=== PATIENT | female | born 1945 | race Caucasian/White ===

== ENCOUNTER 2020-05-31 08:44 | Emergency (ER) | payer MEDICARE ==
[~2020-05-31] VITALS: Ht 154.9 cm; Wt 86.0 kg
[2020-05-31] MEDS ORDERED: ERYTHROMYCIN 0.5% OPHTH OINTMENT 1GM TUBE. OD ONE (09:15)
[2020-05-31] MEDS ORDERED: TETRACAINE 0.5% OPHTH SOLUTION 4ML BOTTLE. OD ONE (09:15)
[2020-05-31] MEDS ORDERED: FLUORESCEIN 1MG EYE STRIP. OD ONE (09:15)
--- NOTE | 2020-05-31 09:26 | PHYS DOC ---
Past History Past Medical History: Hypertension, Liver Disease Additional Past Medical Histor: Swelling to legs Past Surgical History: Hysterectomy Smoking: Non-smoker Alcohol Use: Heavy Additional Alcohol Information: 2+ cocktails daily. Drug Use: None General Adult EDM: Chief Complaint: LOWER EXTREMITY SWELLING HPI: HPI: Patient is a 74-year-old female with a history of liver disease and hypertension who presents to ED with a chief complaint of lower leg swelling. Patient states for the past month she is been dealing with bilateral lower extremity swelling and is currently being treated with hydrochlorothiazide by her PCP but reports that the swelling is not better and that she has come continual pain in her legs when she walks. She reports being relatively sedentary at home. She denies fever, chest pain, or shortness of breath. She also reports past 3 days she had noticed some red overlying skin discoloration, right eye redness and discharge, with facial swelling on the right side of the face. She reports it is nontender, denies any trauma or injury to the face. She denies a history of diabetes or known congestive heart failure. She reports that she has had a recent diagnosis of fatty liver disease and cirrhosis and reports being a chronic daily alcohol user. Patient is currently being set up to see a "liver specialist" at but has not yet established care. There is also some reported concern for intermittent confusion from patient's family members that has been more prominent over the last week. Review of Systems: Review of Systems: Constitutional: Denies fever or chills Eyes: Reports eye redness, swelling, and discharge; denies vision changes. HENT: Denies nasal congestion or sore throat Respiratory: Denies cough or shortness of breath Cardiovascular: Denies chest pain or palpitations GI: Denies abdominal pain, nausea, or vomiting : Denies dysuria or hematuria Musculoskeletal: Denies back pain or joint pain. Reports bilateral leg swelling and pain. Integument: Reports red rash and lesions on right side of face. Neurologic: Denies headache, focal weakness or sensory changes Complete systems were reviewed and found to be within normal limits, except as documented in this note. Allergies: Allergies: Allergies Uncoded Allergies Type Severity Reaction Last Updated Verified PENICILLIN Allergy Unknown Hives 05/31/20 Physical Exam: PE: Constitutional: Well developed, well nourished, no acute distress, non-toxic appearance HENT: Normocephalic, atraumatic. Multiple flat, scaly lesions on the right side of the the nose with accompanying nonblanchable erythema without crossing midline Eyes: PERRL, EOMI, marked right conjunctival erythema with scant yellow discharge, some lower chemosis noted Neck: Normal range of motion, no tenderness, supple Lungs & Thorax: No respiratory distress, equal chest rise and fall Abdomen: Soft, no tenderness Skin: Warm, dry. The right upper quadrant of the face there is a scattered flat blanchable erythematous discoloration extending from the level of the right nare up into the forehead which are nontender Extremities: No tenderness, ROM intact,. Bilateral lower extremity 2+ edema nonpitting, no skin changes or erythema. Neurologic: Alert and oriented X 3, normal motor function, normal sensory function, no focal deficits noted Psychologic: Affect normal, judgment normal Current Patient Data: Vital Signs: Vital Signs Date Time Temp Pulse Resp B/P (MAP) Pulse Ox O2 Delivery O2 Flow Rate FiO2 05/31/20 08:50 98.3 94 22 121/65 (83) 98 Room Air EKG: EKG: @0930, NSR 90bpm, OR 194ms, QRS 72ms, QT/QTc 398/491 ms. No STEMI or ST-T wave changes Radiology/Procedures: Radiology/Procedures: PROCEDURE: VENOUS LOWER EXT BILATERAL EXAM: Bilateral lower extremity venous Doppler sonogram. HISTORY: Pain and swelling. TECHNIQUE: Robledo scale and color Doppler sonographic evaluation of the bilateral lower extremity veins with spectral waveform analysis was performed. FINDINGS: There is normal color flow, normal compressibility and there are normal spectral waveforms in the common femoral, superficial femoral, popliteal, posterior tibial and greater saphenous veins. IMPRESSION: No Doppler evidence of lower extremity deep venous thrombosis. Electronically signed by: Mariela Lockett MD (05/31/2020 10:23 AM) [id number] PROCEDURE: PORTABLE CHEST 1V XR CHEST 1V History: Weakness. Comparison: None. Technique: AP radiograph of the chest. Findings: The lungs are adequately inflated. No focal consolidation, pleural effusion or pneumothorax. Enlarged cardiac silhouette. Indistinct pulmonary vasculature. Senescent changes of the bones. Soft tissues are unremarkable. Impression: 1. Enlarged heart and indistinct pulmonary vasculature, question CHF exacerbation. Electronically signed by: Ceferino Moreno MD (05/31/2020 10:36 AM) [facility] PROCEDURE: CT HEAD WO CONTRAST CT HEAD INDICATION: Altered mental status COMPARISON: None Available. Exposure: One or more of the following individualized dose reduction techniques were utilized for this examination: 1. Automated exposure control 2. Adjustment of the mA and/or kV according to patient size 3. Use of iterative reconstruction technique TECHNIQUE: 5 mm contiguous axial images were obtained from the skull base to the vertex in both bone and soft tissue algorithm. FINDINGS: Mild bilateral periventricular white matter hypodensities likely chronic small vessel ischemic disease No evidence of acute intracranial hemorrhage. No extra-axial fluid collections. No mass effect or midline shift. Ventricular size is appropriate. Basal cisterns are patent. No fractures identified.Robledo-white differentiation is preserved.Globes and orbits are within normal limits. Paranasal sinuses and mastoid air cells are clear. IMPRESSION: No acute intracranial findings. Electronically signed by: Latrell Dumont MD (05/31/2020 10:54 AM) [id number] Heart Score: C/O Chest Pain: N/A Course & Med Decision Making: Course & Med Decision Making Pertinent Labs and Imaging studies reviewed. (See chart for details) Is a 74-year-old male history of hypertension, chronic alcohol use, and recent diagnosis of liver cirrhosis who presents to the ED with chief complaint of bilateral lower extremity edema. Edema has been ongoing for a month and is currently being treated with hydrochlorothiazide by her PCP but patient reports that she continues to have pain and swelling. She also notes the sudden onset of a red rash and swelling on the right side of her face but denies trauma or injury. Lesions appear starts in the right upper forehead gets worse on the right side transitive in the nare, considerations for herpes zoster related etiology given lack of extension across midline. NO fluoresceine uptake (no dendritic figures) on exam. Empiric ophthalmic ointment applied for eye protection. Valacyclovir provided. Chest x-ray remarkable for some vascular congestion concern for possible acute CHF. Labs obtained and posted to chart. Labs remarkable for elevated ammonia, thrombocytopenia, elevated Tbili, and anemia. Unclear baseline levels. No prior labs for comparison. EKG stable. Venous Doppler negative for thrombosis. CT head without acute process. Lactulose provided. Lasix given and potassium replaced. Patient requiring admission for further evaluation and treatment. Discussed with Dr. Ballard (hospitalist) who is in agreement with admission but requests transfer to [facility] for admission given need for GI consultation. Discussed findings and plan with patient and family, who acknowledge understanding and agreement. Agapito Disclaimer: Agapito Disclaimer: This electronic medical record was generated, in whole or in part, using a voice recognition dictation system. Departure Departure: Impression: Primary Impression: Metabolic encephalopathy Additional Impressions: Acute exacerbation of CHF (congestive heart failure) Qualified Codes: I50.9 - Heart failure, unspecified Thrombocytopenia Anemia Qualified Codes: D64.9 - Anemia, unspecified Hyperbilirubinemia Hypokalemia Shingles Qualified Codes: B02.9 - Zoster without complications Disposition: 02 SHORT TERM HOSPITAL ([facility]- Dr. Ballard accepting) Admitting Physician: Hector Ballard Condition: STABLE Referrals: ANN PAN PAC (PCP) CHINMAY SIEGEL DO May 31, 2020 09:26
[2020-05-31 09:45] LABS: BASO # 0.1 x10^3/uL (0.0-0.2); BASO % 1 % (0-3); EOS # 0.1 x10^3/uL (0.0-0.7); EOS % 1 % (0-3); HEMATOCRIT 24.4 % (36.0-47.0); HEMOGLOBIN 8.3 g/dL (12.0-15.5); LYMPH # 1.4 x10^3/uL (1.0-4.8); LYMPH % 21 % (24-48); MEAN CORPUSCULAR HEMOGLOBIN 34 pg (25-35); MEAN CORPUSCULAR HGB CONC 34 g/dL (31-37); MEAN CORPUSCULAR VOLUME 99 fL (79-100); MONO # 0.9 x10^3/uL (0.0-1.1); MONO % 13 % (0-9); NEUT # 4.5 x10^3uL (1.8-7.7); NEUT % 64 % (31-73); PLATELET COUNT 50 x10^3/uL (140-400); RED BLOOD COUNT 2.47 x10^6/uL (3.50-5.40)
[2020-05-31 10:11] LABS: CREATININE 1.8 mg/dL (0.6-1.0); GFR 27.4; POTASSIUM 3.3 mmol/L (3.5-5.1)
[2020-05-31 10:19] LABS: % BANDS 4 % (0-9); % LYMPHS 15 % (24-48); % MONOS 13 % (0-10); % SEGS 68 % (35-66)
[2020-05-31 10:23] LABS: PLT ESTIMATE DECREASED (ADEQUATE)
--- NOTE | 2020-05-31 10:26 | RAD ---
EXAM: Bilateral lower extremity venous Doppler sonogram. HISTORY: Pain and swelling. TECHNIQUE: Robledo scale and color Doppler sonographic evaluation of the bilateral lower extremity veins with spectral waveform analysis was performed. FINDINGS: There is normal color flow, normal compressibility and there are normal spectral waveforms in the common femoral, superficial femoral, popliteal, posterior tibial and greater saphenous veins. IMPRESSION: No Doppler evidence of lower extremity deep venous thrombosis. Electronically signed by: Mariela Lockett MD (05/31/2020 10:23 AM) [id number]
[2020-05-31 10:27] LABS: ALBUMIN 2.8 g/dL (3.4-5.0); ALBUMIN/GLOBULIN RATIO 0.6 (1.0-1.7); MAGNESIUM 1.9 mg/dL (1.8-2.4); TOTAL PROTEIN 7.3 g/dL (6.4-8.2)
--- NOTE | 2020-05-31 10:39 | RAD ---
XR CHEST 1V History: Weakness. Comparison: None. Technique: AP radiograph of the chest. Findings: The lungs are adequately inflated. No focal consolidation, pleural effusion or pneumothorax. Enlarged cardiac silhouette. Indistinct pulmonary vasculature. Senescent changes of the bones. Soft tissues a re unremarkable. Impression: 1. Enlarged heart and indistinct pulmonary vasculature, question CHF exacerbation. Electronically signed by: Ceferino Moreno MD (05/31/2020 10:36 AM) [facility]
--- NOTE | 2020-05-31 10:57 | RAD ---
CT HEAD INDICATION: Altered mental status COMPARISON: None Available. Exposure: One or more of the following individualized dose reduction techniques were utilized for thi s examination: 1. Automated exposure control 2. Adjustment of the mA and/or kV according to patient size 3. Use of iterative reconstruction technique TECHNIQUE: 5 mm contiguous axial images were obtained from the skull base to the vertex in both bone and soft tissue algorithm. FINDINGS: Mild bilateral periventricular white matter hypodensities likely chronic small vessel ischemic diseas e No evidence of acute intracranial hemorrhage. No extra-axial fluid collections. No mass effect or midline shift. Ventricular size is appropriate. Basal cisterns are patent. No fractures identified.Robledo-white differentiation is preserved.Globes and orbits are within normal l imits. Paranasal sinuses and mastoid air cells are clear. IMPRESSION: No acute intracranial findings. Electronically signed by: Latrell Dumont MD (05/31/2020 10:54 AM) [id number]
[2020-05-31] MEDS ORDERED: POTASSIUM CHLORIDE 20 MEQ TABLET.ER. PO ONE (11:10)
[2020-05-31] MEDS ORDERED: FUROSEMIDE 40 MG/4 ML VIAL IVP ONE (11:10)
[2020-05-31] MEDS ORDERED: LACTULOSE 20 GM/30 ML SOLUTION. PO ONE (11:15)
[2020-05-31] MEDS ORDERED: valACYclovir 500 MG TABLET. PO ONE (11:30)
[2020-05-31 11:43] LABS: BARBITURATES NEG (NEG); BENZODIAZEPINES NEG (NEG); CANNABINOIDS NEG (NEG); COCAINE NEG (NEG); METHADONE NEG (NEG); OPIATES NEG (NEG); PHENCYCLIDINE NEG (NEG)
[2020-05-31 11:44] LABS: AMPHETAMINE/METHAMPHETAMINE NEG (NEG)
[2020-05-31 11:53] LABS: CLARITY,URINE CLEAR; COLOR,URINE YELLOW; GLUCOSE,URINE NEG (NEG)
[2020-05-31 11:54] LABS: BILIRUBIN,URINE SMALL (NEG); NITRITE,URINE NEG (NEG); UROBILINOGEN,URINE >=8.0 mg/dL (0.2 mg/dL)
[2020-05-31 12:05] LABS: RBC,URINE RARE /HPF (0-2)
[2020-05-31 12:06] LABS: BACTERIA,URINE 0 /HPF (0-FEW); SQUAMOUS EPITHELIAL CELL,UR FEW /LPF; WBC,URINE OCC /HPF (0-4)
--- NOTE | 2020-05-31 13:51 | EKG ---
[address] [address] Test Date: 2020-05-31 Test Time: 09:30:25 Pat Name: VIVIANA BARAJAS Department: Room: Gender: F Flight Surveyor: DONELL : 1945 Requested By: CHINMAY SIEGEL Order Number: [id number] Reading MD: Measurements Intervals [place] Rate: 90 P: 0 WA: 194 QRS: -2 QRSD: 72 T: 21 QT: 398 QTc: 491 Interpretive Statements SINUS RHYTHM LEFTWARD AXIS LOW LIMB LEAD VOLTAGE PROLONGED QT NO SPECIFIC ECG ABNORMALITIES RI6.02 No previous ECG available for comparison
[2020-05-31 15:15] VITALS: BP 112/52
== END 2020-05-31 16:10 | disposition short-term general hospital (02) ==
LOC: ER 08:44
DX: G93.41 Metabolic encephalopathy (principal); I11.0 Hypertensive heart disease with heart failure; I50.9 Heart failure, unspecified; D69.6 Thrombocytopenia, unspecified; D64.9 Anemia, unspecified; E80.6 Other disorders of bilirubin metabolism; E87.6 Hypokalemia; B02.9 Zoster without complications; F10.20 Alcohol dependence, uncomplicated; Y90.9 Presence of alcohol in blood, level not specified; Z88.0 Allergy status to penicillin
CPT/HCPCS: 36415; 70450; 71045; 80053; 80307; 81001; 82140; 82553; 83735; 83880; 84484; 85007; 85025; 85610; 85730; 93005; 93970; 96374; 99285; G0480; J1940

== ENCOUNTER 2020-06-18 08:57 | Emergency (ER) | payer MEDICARE ==
[~2020-06-18] VITALS: Ht 154.9 cm; Wt 91.0 kg
[2020-06-18] MEDS ORDERED: IV NORMAL SALINE 1,000ML 1,000 ML IV ONE (09:15)
--- NOTE | 2020-06-18 09:32 | PHYS DOC ---
Past History Past Medical History: Anemia, CHF, Hypertension, Liver Disease Additional Past Medical Histor: Swelling to legs Past Surgical History: Hysterectomy Smoking: Non-smoker Alcohol Use: Heavy Drug Use: None General Adult EDM: Chief Complaint: ALTERED MENTAL STATUS HPI: HPI: 74-year-old female presents via EMS from [facility] with change in mental status. The patient is less alert this morning than normal. They discovered that she was not acting herself around 730 this morning. Last known well was last night. They did not describe in detail the patient's baseline status. The patient has known liver disease and CHF. The patient is able to op en her eyes to my commands. When I asked how she feels she starts to answer, but then seems to fall asleep. No other history is available at this time. Review of Systems: Review of Systems: Unable to perform due to altered mental status Current Medications: Current Meds: Current Medications Medications (Trade) Dose Ordered Sig/Freya Start Time Stop Time Status Last Admin Dose Admin Sodium Chloride 1,000 ml @ 1,000 mls/hr 1X ONCE 06/18/20 09:15 06/18/20 10:14 Allergies: Allergies: Allergies Coded Allergies Type Severity Reaction Last Updated Verified Penicillins Allergy Unknown Hives 05/31/20 Yes Physical Exam: PE: Constitutional: Well developed, well nourished, obese, no acute distress, non- toxic appearance. [] HENT: Normocephalic, atraumatic, bilateral external ears normal, oropharynx dry, no oral exudates, nose normal. [] Eyes: PERRLA, EOMI, scleral icterus, no discharge. [] Neck: Normal range of motion, no tenderness, supple, no stridor. [] Cardiovascular: Heart rate 71, regular rhythm, no murmur [] Lungs & Thorax: Bilateral breath sounds clear to auscultation [] Abdomen: Bowel sounds normal, soft, no tenderness, no masses, no pulsatile masses. [] Skin: Warm, dry, no erythema, no rash, mild to moderate jaundice. [] Back: No tenderness, no CVA tenderness. [] Extremities: No tenderness, no cyanosis, no clubbing, ROM intact, 3+ pitting edema to above the knees bilaterally. [] Neurologic: Spontaneously opens eyes and moves all extremities. [] Psychologic: Unable to assess. [] Current Patient Data: Vital Signs: Vital Signs Date Time Temp Pulse Resp B/P (MAP) Pulse Ox O2 Delivery O2 Flow Rate FiO2 06/18/20 09:00 97.5 66 16 91/48 (62) 98 EKG: EKG: Sinus rhythm, rate 68, normal axis, no ST elevation or depression, low voltage. [] Radiology/Procedures: Radiology/Procedures: [] Impressions: EXAMINATION: Chest radiograph. VIEWS: Single AP view COMPARISON: 05/31/2020 INDICATION: Altered mental status FINDINGS: Unchanged cardiomediastinal silhouette. Diffuse bilateral reticular opacities with prominent bilateral yoandy and cephalization of the pulmonary vessels. No focal consolidation. No pleural effusion or pneumothorax. No acute osseous process. IMPRESSION: Pulmonary vascular congestion, without overt edema. Electronically signed by: Dhaval Jefferson MD (06/18/2020 10:05 AM) [id number] DICTATED AND SIGNED BY: DHAVAL JEFFERSON MD DATE: 06/18/20 1003 CC: SHALINI VIRAMONTES DO; ANN PAN PAC ~MTH0 0 Heart Score: C/O Chest Pain: N/A Risk Factors: Risk Factors: DM, Current or recent (<one month) smoker, HTN, HLP, family history of CAD, obesity. Risk Scores: Score 0 - 3: 2.5% MACE over next 6 weeks - Discharge Home Score 4 - 6: 20.3% MACE over next 6 weeks - Admit for Clinical Observation Score 7 - 10: 72.7% MACE over next 6 weeks - Early Invasive Strategies Course & Med Decision Making: Course & Med Decision Making Pertinent Labs and Imaging studies reviewed. (See chart for details) The patient's labs are significant for an elevated ammonia of over 100. She also has an elevated creatinine of 2.8. Her baseline appears to be 1.8. She appears clinically dry, but also has bilateral lower extremity edema. Her proBNP is over 1600, but this is improved from previous visit is over 6000. I have ordered a liter of normal saline. She also has had a soft blood pressure and I believe the fluids are necessary. Patient's urinalysis is positive for nitrates. I will treat her with Rocephin 1 g IV. Her bilirubin is high. Her white count is normal. Hemoglobin is 8.2 which is similar to previous. Chest x-ray shows congestion. See official read for more details. Patient's family came to the ER and states that she has not had a bowel movement in 3 days. She is taking lactulose at the care facility daily. I will admit the patient to the hospital for altered mental status and elevated ammonia level. The family spoke to the hip hop performers that they have been trying to get into, Dr. Olive Rayo and they have recommended that patient be transferred to [facility] so that they can see the patient. The family would prefer to be transferred to for admission. Dr. Owen Livingston has accepted patient for transfer admission to . He has requested we give the patient a dose of lactulose prior to transfer. We have administered this medication. She will go by ambulance. [] Agapito Disclaimer: Agapito Disclaimer: This electronic medical record was generated, in whole or in part, using a voice recognition dictation system. Departure Departure: Impression: Primary Impression: Increased ammonia level Additional Impressions: Elevated serum creatinine UTI (urinary tract infection) Altered mental status Disposition: 02 SHORT TERM HOSPITAL Condition: GUARDED Referrals: ANN PAN PAC (PCP) SHALINI VIRAMONTES DO June 18, 2020 09:31
[2020-06-18 09:50] LABS: BASO # 0.1 x10^3/uL (0.0-0.2); BASO % 2 % (0-3); EOS # 0.1 x10^3/uL (0.0-0.7); EOS % 2 % (0-3); HEMATOCRIT 24.3 % (36.0-47.0); HEMOGLOBIN 8.2 g/dL (12.0-15.5); LYMPH # 1.8 x10^3/uL (1.0-4.8); LYMPH % 28 % (24-48); MEAN CORPUSCULAR HEMOGLOBIN 33 pg (25-35); MEAN CORPUSCULAR HGB CONC 34 g/dL (31-37); MEAN CORPUSCULAR VOLUME 99 fL (79-100); MONO # 0.7 x10^3/uL (0.0-1.1); MONO % 11 % (0-9); NEUT # 3.6 x10^3uL (1.8-7.7); NEUT % 57 % (31-73); PLATELET COUNT 69 x10^3/uL (140-400); RED BLOOD COUNT 2.45 x10^6/uL (3.50-5.40); RED CELL DISTRIBUTION WIDTH 17.7 % (11.5-14.5); WHITE BLOOD COUNT 6.4 x10^3/uL (4.0-11.0)
[2020-06-18 10:00] LABS: CALCIUM 9.1 mg/dL (8.5-10.1); CREATININE 2.8 mg/dL (0.6-1.0); GFR 16.5
--- NOTE | 2020-06-18 10:07 | RAD ---
EXAMINATION: Chest radiograph. VIEWS: Single AP view COMPARISON: 05/31/2020 INDICATION: Altered mental status FINDINGS: Unchanged cardiomediastinal silhouette. Diffuse bilateral reticular opacities with prominent bilatera l yoandy and cephalization of the pulmonary vessels. No focal consolidation. No pleural effusion or pne umothorax. No acute osseous process. IMPRESSION: Pulmonary vascular congestion, without overt edema. Electronically signed by: Bushra Jefferson MD (06/18/2020 10:05 AM) [id number]
[2020-06-18 10:08] LABS: BILIRUBIN,URINE MOD (NEG); CLARITY,URINE CLEAR; COLOR,URINE AMBER; GLUCOSE,URINE NEG (NEG)
[2020-06-18 10:09] LABS: AMORPHOUS SEDIMENT,UR PRESENT /HPF; BACTERIA,URINE FEW /HPF (0-FEW); NITRITE,URINE POS (NEG); SQUAMOUS EPITHELIAL CELL,UR MOD /LPF
[2020-06-18 10:10] LABS: HYALINE CASTS, URINE MOD /HPF
[2020-06-18 10:13] LABS: ALBUMIN 2.7 g/dL (3.4-5.0); ALBUMIN/GLOBULIN RATIO 0.7 (1.0-1.7); MAGNESIUM 2.2 mg/dL (1.8-2.4); TOTAL BILIRUBIN 4.6 mg/dL (0.2-1.0); TOTAL PROTEIN 6.5 g/dL (6.4-8.2)
[2020-06-18] MEDS ORDERED: cefTRIAXone SODIUM 1 GM VIAL ONE (11:01)
[2020-06-18] MEDS ORDERED: IV NORMAL SALINE 50ML 50 ML ONE (11:01)
[2020-06-18 12:15] VITALS: BP 90/42
[2020-06-18] MEDS ORDERED: LACTULOSE 20 GM/30 ML SOLUTION. PO ONE (12:15)
--- NOTE | 2020-06-18 19:51 | EKG ---
[address] [address] Test Date: 2020-06-18 Test Time: 09:47:19 Pat Name: VIVIANA BARAJAS Department: Room: Gender: F Collection Analyst: BRYNN : 1945 Requested By: SHALINI VIRAMONTES Order Number: [id number] Reading MD: Measurements Intervals [place] Rate: 68 P: 0 AL: 188 QRS: 26 QRSD: 62 T: 37 QT: 454 QTc: 483 Interpretive Statements SINUS RHYTHM LOW VOLTAGE PROLONGED QT ABNORMAL ECG RI6.02 No previous ECG available for comparison
== END 2020-06-18 13:00 | disposition short-term general hospital (02) ==
LOC: ER 08:57
DX: E72.29 Other disorders of urea cycle metabolism (principal); N39.0 Urinary tract infection, site not specified; R11.2 Nausea with vomiting, unspecified; R41.82 Altered mental status, unspecified; I11.0 Hypertensive heart disease with heart failure; I50.9 Heart failure, unspecified; Z90.710 Acquired absence of both cervix and uterus; Z88.0 Allergy status to penicillin
CPT/HCPCS: 36415; 71045; 80053; 81001; 82140; 83735; 83880; 84484; 85025; 87086; 93005; 96361; 96365; 99285; J0696; J7030